=== PATIENT | male | born 1965 | race Caucasian/White ===

== ENCOUNTER 2024-06-10 15:14 | Emergency (ER) | payer OTHER, SELFPAY ==
[2024-06-10 16:01] VITALS: BP 120/99; PULSE 76; RESP 18; TEMP 36.7; O2SAT 97; BMI 33.4
--- NOTE | 2024-06-10 16:14 | ED_ITS ---
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 He was working with his usual equipment when he felt that a tiny piece of metal flew into his right eye. He felt that it hit him in the medial portion of the eye near the nose. He went to the [facility] office. He was referred to the emergency room for further evaluation. The patient has had a long wait to see a provider. At this point he does not have any sense of a foreign body in his eye. He thinks the foreign body came out and is no longer in his eye. He has no foreign body sensation. He has no significant pain is eye. He has no visual complaint. Related Data Previous Rx's ?Medication ?Instructions ?Recorded erythromycin 5 mg/gram (0.5 %) eye 0.5 inch ophthalmic (eye) QID #3.5 06/10/24 ointment grams Allergies Allergy/AdvReac Type Severity Reaction Status Date / Time No Known Allergies Allergy Verified 06/10/24 16:02 Review of Systems Review of Systems: Yes all other systems are reviewed and are negative [facility] Social History Social History Advance Directives: No Advance Directives Information Provided: No Physical Exam ED Vital Signs: Vital Signs - 24 hr 06/10/24 16:01 Temperature 98.1 F Pulse Rate 76 Respiratory Rate 18 Blood Pressure 120/99 H Pulse Oximetry 97 Oxygen Delivery Method Room Air BMI result Body Mass Index 33.4 Const Other: The patient is awake, alert, pleasant, cooperative. He does not appear uncomfortable or in distress. HENMT Other: No sign of trauma to the face. Eyes Other: There is a small subconjunctival hemorrhage to the medial aspect of the right eye that is only apparent when the patient looks to the right. Pupils are round equal and reactive to light, extraocular movements are intact. Slit-lamp exam, unenhanced, reveals what appears to be an entirely normal looking cornea with no apparent irregularities. There was no foreign body in the cornea. On the conjunctiva there is a small subconjunctival hemorrhage feel canthus of the right eye. No foreign body is apparent either on the cornea or the conjunctiva. Eyelid eversion reveals no foreign body under the eyelid. Resp Effort & Inspection: normal respiratory effort Skin Other: No injury to the skin of the face Neuro Other: The patient is awake and alert with a normal mental status. Cranial nerves are grossly intact. He has a normal gait. Course Course Course Narrative: RME, this is a rapid medical exam performed by Kiko Mercado please refer to primary provider for complete H&P- 59-year-old male presents for evaluation of right eye injury. He believes he got a small piece of metal in his right eye. He has no pain currently. He reports there was a small amount of blood in the corner of his right eye. Pupil is equal, round reactive to light and accommo dation. Plan for focused eye exam Medications Administered Discontinued Medications Generic Name Dose Route Start Last Admin Trade Name Jimenezq PRN Reason Stop Dose Admin Erythromycin 1 cm 06/10/24 23:22 06/10/24 23:40 Erythromycin Base 0.5% Oph Oin 1 Gm Tube EYE-RIGHT 06/10/24 23:23 1 cm ONCE ONE Administration Fluorescein Sodium 1 strip 06/10/24 16:14 06/10/24 22:36 Fluorescein Sodium Strip EYE-RIGHT 06/10/24 16:15 1 strip ONCE ONE Administration Tetracaine HCl 1 drop 06/10/24 16:14 06/10/24 22:35 Tetracaine Hcl/Pf 0.5% Oph Alanna 4 Ml Drops EYE-RIGHT 06/10/24 16:15 1 drop ONCE ONE Administration Medical Decision Making Medical Decision Making [facility] Narrative: The patient is a 59-year-old male who was at work when a small piece of metal flew into his right eye. He says that he thought the metal hit him in the medial aspect of the eye. he has a small subconjunctival hemorrhage at the medial aspect of the right conjunctiva near the medial canthus. This is only apparent when he deviates his eyes to the right. Slit-lamp exam reveals no persistent foreign body. I do not see any corneal injury. Eyelid eversion reveals no foreign body. I did not feel there was an indication for fluorescein testing in this patient. I think he likely had a foreign body that caused a small subconjunctival hemorrhage but I do not think the foreign body Is still present. He will be started on erythromycin ointment and should follow up with Ophthalmology or the [facility]. Discharge Plan Discharge Clinical Impression: Subconjunctival hemorrhage Patient Disposition: Home, Self-Care Additional Instructions: At the moment I do not think you have any residual foreign body in your eye. There is a sign of injury at the middle aspect of your eye near your nose. However I do not think anything is still in your eye and I do not think you have injured your cornea, the most important external portion of the eye. I would recommend using the erythromycin ointment 4 times a day for the next few days. My expectation is that this injury should heal well on its own without more specific therapy. You may follow up with the workmen's compensation office ([facility]) if you do not have any specific ongoing concerns about your eye. However if you do have ongoing concerns about your eye and would like to see an lead enterprise architect please contact Dr. Elizondo's office. If you are acutely worse at any point return to the emergency department. Prescriptions: New erythromycin 5 mg/gram (0.5 %) ointment 0.5 inch ophthalmic (eye) QID Qty: 3.5 0RF Referrals: [facility] [Provider Group] (conjunctival hemorrhage) Sonu Elizondo [Physician] - (Right eye injury with subconjunctival hemorrhage) Interventions: ED Discharge Assessment Last Done: 06/10/24 23:46 Discharge Date/Time: 06/10/24 23:47 Print Language: [place] Citizen
[2024-06-10] MEDS: Tetracaine HCl/PF 0.5% Oph Sol 4 ML DROPS 1 DROP EYE-RIGHT (22:35)
[2024-06-10] MEDS: Fluorescein Sodium STRIP 1 STRIP EYE-RIGHT (22:36)
[2024-06-10] MEDS: Erythromycin Base 0.5% Oph Oin 1 GM TUBE 1 CM EYE-RIGHT (23:40)
--- NOTE | 2024-06-10 23:43 | PC.NURSE ---
Took over care from DAVID Guerrero, medicated per jun upon discharge, reviewed discharge instruction with pt. pt verbalized understanding, no sign of distress, pt was hypertensive, did not take his second dose of hypertension medication. Notified Dr. Pool of pt blood pressure upon discharge. Okay to discharge home per provider.
[2024-06-10 23:45] VITALS: BP 161/112; PULSE 84; RESP 18; TEMP 36.1; O2SAT 98
[2024-06-10 23:46] VITALS: BP 161/112; PULSE 84; RESP 18; TEMP 36.1; O2SAT 98
== END 2024-06-10 23:47 | disposition home or self-care (01) ==
PROVIDERS: Emergency Provider Emergency Medicine
DX: H11.31 Conjunctival hemorrhage, right eye (principal)
CPT/HCPCS: 99283